=== PATIENT | male | born 1980 | race Two or more races ===

== ENCOUNTER 2024-07-02 16:56 | Emergency (ER) | payer MEDICAID ==
[~2024-07-02] VITALS: Ht 200.7 cm; Wt 104.0 kg
[2024-07-02 17:16] VITALS: TEMP 99.3
[2024-07-02] MEDS: LIDOcaine 1% W/epiNEPHrine 1:100,000 20ml vial IJ ONE (18:24)
[2024-07-02] MEDS ORDERED: IBUP-1985 PO (18:47)
[2024-07-02 18:58] VITALS: BP 145/89; PULSE 89; RESP 14; O2SAT 98
== END 2024-07-02 18:59 | disposition home or self-care (01) ==
LOC: ER 16:58
DX: L02.416 Cutaneous abscess of left lower limb (principal); Z79.1 Long term (current) use of non-steroidal anti-inflammatories (NSAID)
CPT/HCPCS: 99282; A6407; A6258; A6446; A6449